=== PATIENT | female | born 1980 | race Caucasian/White ===

== ENCOUNTER 2020-06-11 22:28 | Emergency (ER) | payer OTHER, SELFPAY ==
--- NOTE | ~2020-06-11 | XR_ITS ---
EXAMINATION: XR CHEST CLINICAL INFORMATION: Pneumonia, low suspicion COMPARISON: None TECHNIQUE: Frontal view of the chest was obtained. FINDINGS: The heart and pulmonary vessels appear normal. In the retrocardiac region, there is some mild increased density which may represent infiltrate or atelectasis. No pleural effusions are seen. No lung masses are seen. XR/XR chest 1V IMPRESSION: Question of infiltrate versus atelectasis retrocardiac region.
[2020-06-11 22:56] VITALS: PULSE 105; RESP 18; TEMP 37.1; O2SAT 95
--- NOTE | 2020-06-12 00:18 | ED.URI ---
HPI - URI/Sore Throat General Chief Complaint: Upper Respiratory Symptoms Stated Complaint: asthma,chest pressure Time Seen by Provider: 06/12/20 00:00 Source: patient Mode of arrival: ambulatory Limitations: no limitations History of Present Illness HPI Narrative: Patient comes emergency room complaining of upper respiratory issues. Patient states she has coughing, having sinus pressure, runny nose. Has tried Flonase with no relief. Also, complaining of a mild asthma exacerbation earlier today which self-resolved. Patient denies shortness of breath or chest pain. Patient states she had an asthma exacerbation 2 years ago, her albuterol already . Patient states she has not been tested for [place] elicited complaint: cough Related Data Previous Rx's Medication Instructions Recorded albuterol sulfate 2 puff INHALATION Q4-6H PRN #8.5 g 06/12/20 azithromycin 250 mg PO DAILY 5 Days #5 tab 06/12/20 prednisone 50 mg PO DAILY #4 tab 06/12/20 Allergies Allergy/AdvReac Type Severity Reaction Status Date / Time No Known Allergies Allergy Verified 06/11/20 22:59 Review of Systems Review of Systems: Constitutional : No Weight loss, No Fever, No Chills, No Night Sweats, No Fatigue, No Malaise ENT/Mouth : No Hearing loss, No Ear Pain, No Nasal Congestion, No Sinus Pain, No Hoarseness, No sore throat, No Rhinorrhea, No Swallowing Difficulty Eyes: No Eye Pain, No Swelling, No Redness, No Foreign Body, No Discharge, No Vision Changes Cardiovascular : No Chest Pain, No SOB, No Dyspnea on Exertion, No Orthopnea, No Edema, No Palpitations Respiratory : Complaining of dry cough No Sputum, complaining of wheezing, No Smoke Exposure, No Dyspnea Gastrointestinal : No Nausea, No Vomiting, No Diarrhea, No Constipation, No abdominal Pain, No Hematochezia, No Melena Genitourinary : no irregular bleeding, No Dysuria, No Urinary Frequency, No Hematuria, No Urinary Incontinence, No Urgency, No Flank Pain, No Urinary Flow Changes, No Hesitancy Musculoskeletal : No joint pain, No Myalgias, No Joint Swelling Skin : No Skin Lesions, No rash Neuro : No Weakness, No Numbness, No Paresthesias, No Loss of Consciousness, No Dizziness, No Headache Psych : No Anxiety/Panic, No Depression, No SI/HI/AH/VH, No Social Issues, Heme/Lymph: No Bruising, No Bleeding,No Lymphadenopathy Endocrine : No Polyuria, No Polydipsia, No Temperature Intolerance [facility] Past Medical History Medical History (Updated 06/12/20 @ 01:34 by Kiarra Medina MD) Asthma Social History Social History Advance Directives: No Physical Exam Vital Signs: Vital Signs: Last Vital Signs Temp 98.7 F 06/11/20 22:56 Pulse 105 H 06/11/20 22:56 Resp 18 06/11/20 22:56 Pulse Ox 95 06/11/20 22:56 Body Mass Index 30.0 Appearance: Alert. Oriented X3. No acute distress. Eyes: Pupils equal, round and reactive to light. ENT: Pharynx normal. Neck: Normal inspection. Neck supple. No lymph nodes noted. No crepitus CVS: Normal heart rate and rhythm. Pulses normal. Normal S1 and S2 Respiratory: No respiratory distress. Breath sounds normal. No Wheezing. No rales , actively coughing Abdomen: Soft and nontender. No rigidity. No distention. good BS x4 Skin: Skin warm and dry. Normal skin color. Normal skin turgor. Extremities: No lower extremity edema. No lower extremity edema. No Lacerations. No Rash Neuro: Oriented X 3. No motor deficit. No sensory deficit. Moving all extermities. No slurred speech. Course Course Course Narrative: I discussed with the patient that she may have early pneumonia. Patient has no fever chills. Patient will be started on antibiotics. Patient also requested a refill albuterol. I also discussed with the patient that we will send prednisone to her pharmacy. Patient tested positive for COVID-19. MDM - URI/Sore Throat Lab Data Labs: Lab Results 06/12/20 Range/Units 00:27 Coronavirus (PCR) POSITIVE A (Negative) Influenza Type A (PCR) NEGATIVE (Negative) Influenza Type B (PCR) NEGATIVE (Negative) RSV RNA Qual (PCR) NEGATIVE (Negative) Imaging Data Chest x-ray: Radiologist's impression: The heart and pulmonary vessels appear normal. In the retrocardiac region, there is some mild increased density which may represent infiltrate or atelectasis. No pleural effusions are seen. No lung masses are seen. XR/XR chest 1V IMPRESSION: Question of infiltrate versus atelectasis retrocardiac region Discharge Plan Discharge Clinical Impression: COVID-19 Pneumonia Qualifiers: Pneumonia type: due to unspecified organism Laterality: unspecified laterality Lung location: unspecified part of lung Qualified Code(s): J18.9 - Pneumonia, unspecified organism Patient Disposition: Home, Self-Care Instructions: Pneumonia (ED) Additional Instructions: You tested positive for COVID-19. Please stay at home for 10 days. Please follow-up with your primary care physician tomorrow. If you have any worsening or new symptoms, please return to the emergency room or call 911 Prescriptions: New azithromycin 250 mg tablet 250 mg PO DAILY 5 Days Qty: 5 RF: 0 albuterol sulfate 90 mcg/actuation HFA aerosol inhaler 2 puff inhalation Q4-6H PRN (Reason: shortness of breath or wheezing) Qty: 8.5 RF: 0 prednisone 50 mg tablet 50 mg PO DAILY Qty: 4 RF: 0 Stand Alone Forms: Work/School Release Interventions: ED Discharge Assessment Last Done: 06/12/20 01:21
[2020-06-12 01:21] LABS: Influenza A PCR NEGATIVE (Negative); Influenza B PCR NEGATIVE (Negative); Resp Syncy Virus RNA Qual PCR NEGATIVE (Negative)
[2020-06-12] MEDS: predniSONE 10 MG TABLET 50 MG PO (01:28)
[2020-06-12] MEDS: Azithromycin 500 MG TABLET PO (01:28)
[2020-06-12 01:29] LABS: SARS COV2 PCR INHOUSE POSITIVE (Negative)
--- NOTE | 2020-06-12 01:58 | PC.NURSE ---
D/C EDUCATION REITERATED. UPDATED PAPERWORK GIVEN. NO QUESTIONS REGARDING OUTPATIENT MANAGEMENT AND COVID PROTOCOL
== END 2020-06-12 01:59 | disposition home or self-care (01) ==
PROVIDERS: Emergency Provider Emergency Medicine
DX: U07.1 COVID-19 (principal); J45.909 Unspecified asthma, uncomplicated; Z79.899 Other long term (current) drug therapy
CPT/HCPCS: 0241U; 36415; 71045; 99283

== ENCOUNTER 2023-03-09 12:19 | Emergency (ER) | payer OTHER, SELFPAY ==
--- NOTE | ~2023-03-09 | XR_ITS ---
EXAMINATION: XR CHEST 2 VIEW CLINICAL INFORMATION: Hypertension COMPARISON: 06/12/2020 TECHNIQUE: PA and lateral views of the chest obtained. FINDINGS: The lungs are clear. There are no pleural effusions. The cardiomediastinal silhouette is normal. XR/XR chest 2V IMPRESSION: No acute cardiopulmonary disease.
[2023-03-09 12:42] VITALS: BP 181/115; PULSE 103; RESP 17; TEMP 36.4; O2SAT 94
--- NOTE | 2023-03-09 12:42 | ED.GENADULT ---
HPI - General Adult General Chief complaint: General Medical Stated complaint: high bp Time Seen by Provider: 03/09/23 17:00 Source: patient, RN notes reviewed and old records reviewed Mode of arrival: ambulatory Limitations: no limitations History of Present Illness HPI narrative: 42-year-old female with past medical history significant for asthma, headaches presents for evaluation of a headache and high blood pressure. Patient reports that she woke up this morning with a global headache. She reports a history of migraine headaches but has not had a migraine in over a year Patient did not take any medications to alleviate her symptoms. She reports at work she took her blood pressure because she was having a headache She states that her blood pressure was ?high. ? Patient reports that she takes losartan and hydrochlorothiazide for her blood pressure. She reports her medications this morning She stop taking amlodipine a few months ago due to leg swelling Patient reports her headache is 7/10 and global No fevers, chills, visual changes, eye pain No other complaints or concerns at this time Related Data Previous Rx's Medication Instructions Recorded albuterol sulfate 90 mcg/actuation 2 puff inhalation Q4-6H PRN 06/12/20 aerosol inhaler shortness of breath or wheezing #8.5 grams azithromycin 250 mg tablet 250 mg PO DAILY 5 days #5 tabs 06/12/20 prednisone 50 mg tablet 50 mg PO DAILY #4 tabs 06/12/20 [id number]-[id number] 1 cap PO Q4-6H PRN headache #20 03/09/23 50 mg-300 mg-40 mg capsule caps (Fioricet) Allergies Allergy/AdvReac Type Severity Reaction Status Date / Time No Known Allergies Allergy Verified 06/11/20 22:59 Review of Systems Constitutional: Constitutional: Denies chills, Denies fever(s) and Reports headache(s) Eyes: Eyes: Denies blind spots, Denies blurry vision and Denies exophthalmos ENT: Reports headache(s) and Denies neck pain Cardiovascular: Cardiovascular: Denies chest pain and Denies dyspnea Respiratory: Respiratory: Denies cough and Denies dyspnea Gastrointestinal: Gastrointestinal: Denies abdominal pain, Denies nausea and Denies vomiting Musculoskeletal: Musculoskeletal: Denies back pain, Denies neck pain and Denies numbness Neurologic: Reports headache(s) and Denies numbness [facility] Past Medical History Medical History (Updated 03/09/23 @ 18:33 by Thor Harrison) Asthma Social History Social History Alcohol intake: never Smoked in Last 30 Days: No Use of substances other than those prescribed or required for medical reasons: No Advance Directives: No Advance Directives Information Provided: Yes Patient : No Physical Exam ED Vital Signs: Vital Signs - 24 hr 03/09/23 12:42 03/09/23 16:46 03/09/23 17:05 Temperature 97.6 F 98.2 F Pulse Rate 103 H 89 Respiratory Rate 17 16 Blood Pressure 181/115 H 181/102 H 170/105 H Pulse Oximetry 94 98 Oxygen Delivery Method Room Air Room Air 03/09/23 18:10 Temperature Pulse Rate 85 Respiratory Rate 18 Blood Pressure 144/92 H Pulse Oximetry 96 Oxygen Delivery Method BMI result Body Mass Index 0.3 Const General: healthy appearing, comfortable, no acute distress, alert and awake Nutritional Appearance: well nourished Orientation/consciousness: patient oriented x3 HENMT Head: Yes normocephalic and Yes atraumatic Eyes Eyelids: Yes eyelids normal Conjunctivae: conjunctivae normal Pupils: Equal, round and reactive pupils present EOM: EOMs intact bilaterally Neck Neck: Yes full ROM Resp Effort & Inspection: normal respiratory effort, able to speak in complete sentences and not labored Neuro General: patient oriented x3 Cranial nerves: Yes CN's II-XII intact bilaterally, Yes Equal, round and reactive pupils present and Yes Bilaterally intact EOM present Cognition (Neuro): normal cognition Extrem Other: Moving all extremities well without any obvious deformities Course Course Course Narrative: RME performed by Kristie Gutiérrez PA-C. Patient is a 42 year old assigned female at presenting to the emergency department with high blood pressure. Labs ordered. Patient placed back in the waiting room pending room availability and results. Medications Administered Discontinued Medications Generic Name Dose Route Start Last Admin Trade Name Freq PRN Reason Stop Dose Admin Acetaminophen/Butalbital/Caffeine 1 tab 03/09/23 17:14 03/09/23 17:20 Butalb/Acetamin/Caff 50/325/40 Tablet PO 03/09/23 17:15 1 tab ONCE ONE Administration Ketorolac Tromethamine 30 mg 03/09/23 17:14 03/09/23 17:20 Ketorolac Tromethamine 30 Mg/Ml Vial IM 03/09/23 17:15 30 mg ONCE ONE Administration Medical Decision Making Medical Decision Making [facility] Narrative: 42-year-old female with history of asthma and headaches presents for pressure. Her blood pressure on arrival to the ED is 181/115. On recheck it is down to 170/105 without intervention. She reports that she is still having headache is steady exam. Her elevated blood pressure could be related to discomfort related to her headache. Given the patient has a history of chronic headaches and has no warning signs does not o'clock headache or neuro deficits, I do not see any indication for emergent imaging at this time. Patient's labs and workup without any significant findings to explain her symptoms. Will treat her headache and re-evaluate her blood pressure. Differential Diagnosis Differential Diagnoses: The differential diagnosis associated with the presentation includes Acute headache Hypertension Hypertensive urgency Hypertensive emergency Viral syndrome Lab Data [facility] Lab Attestation statement: I reviewed the patient's lab results. Mild leukocytosis to 11.5 K without a left shift. No anemia. Patient has full account of cyst above normal at 446 K. no significant chemistry abnormalities. Serology negative for viral swab. 03/09/23 13:02 03/09/23 13:02 Labs: Lab Results 03/09/23 Range/Units 13:02 WBC 11.5 H (4.8-10.8) X10*3/uL RBC 4.93 (4.20-5.50) X10*6/uL Hgb 15.0 (12.0-16.0) g/dl Hct 43.0 (37.0-47.0) % MCV 87.2 (80.0-98.0) fL MCH 30.4 (27.0-33.0) pg MCHC 34.9 (31.0-35.0) g/dl RDW 12.9 (11.0-16.0) % Plt Count 446 H (160-400) X10*3/uL MPV 8.6 L (9.4-12.3) fL Immature Gran % (Auto) 0.5 H (0.0-0.4) % Neut % (Auto) 63.5 (45-73) % Lymph % (Auto) 26.9 (20-40) % Titus % (Auto) 8.6 (2-11) % Eos % (Auto) 0.0 (0-4) % Baso % (Auto) 0.5 (0-2) % Lymph # (Auto) 3.1 (1.2-4.9) X10*3/uL Titus # (Auto) 1.0 (0.1-1.2) X10*3/uL Eos # (Auto) 0.0 (0.0-0.4) X10*3/uL Baso # (Auto) 0.1 (0.0-0.2) X10*3/uL Abs Immat Gran (auto) 0.06 H (0.00-0.03) X10*3/uL Absolute Neuts (auto) 7.3 (2.0-8.3) x10*3/uL Absolute Nucleated RBC 0.000 (0.0-0.012) X10*3/uL Nucleated RBC % (auto) 0.0 (0.0-0.2) /100WBC PT 11.6 (11.1-13.3) SEC INR 1.0 (0.9-1.1) APTT 36.9 H (26.0-36.4) SEC Sodium 137 (135-145) mmol/L Potassium 3.3 (3.3-5.1) mmol/L Chloride 100 (96-108) mmol/L Carbon Dioxide 29 (22-29) mmol/L Anion Gap 11 L (12-20) BUN 12 (9-16) mg/dL Creatinine 0.71 (0.5-1.4) mg/dL Estim Creat Clear Calc 140.6 Estimated GFR > 60 Random Glucose 119 H (60-115) mg/dL Calcium 10.1 (8.4-10.2) mg/dL Magnesium 1.9 (1.6-2.6) mg/dL Total Bilirubin 0.8 (0.0-1.0) mg/dL AST 15 (5-31) U/L ALT 14 (0-31) U/L Alkaline Phosphatase 67 (39-117) U/L Troponin I High Sens < 2.7 (<3.5-17.0) ng/L Total Protein 8.0 (6.5-8.0) g/dL Albumin 4.4 (3.5-5.0) g/dL Influenza Type A (PCR) NEGATIVE (Negative) Influenza Type B (PCR) NEGATIVE (Negative) RSV RNA Qual (PCR) NEGATIVE (Negative) SARS-CoV-2 RNA (RT-PCR) NEGATIVE (Negative) Tests considered The following testing was considered but not selected: Considered CT scan of the head all the patient has history of headaches and no neuro deficits. No warning signs for thunderclap headache. Imaging deferred at this time. Discharge Plan Discharge Clinical Impression: Acute headache Patient Disposition: Home, Self-Care Instructions: Acute Headache (ED) Additional Instructions: Your workup in the emergency department today was reassuring. Take your blood pressure medications as prescribed I think your blood pressure was slightly elevated today due to your headache Use Fioricet as needed for further headaches Return for new or worsening symptoms Call your doctor tomorrow morning to schedule follow-up Prescriptions: New rwyedoypde-xsrosxnxctwxi-mcqj [Fioricet] 50-300-40 mg capsule 1 cap PO Q4-6H PRN (Reason: headache) Qty: 20 0RF Rx Instructions: do not exceed 6 caps per day No Action azithromycin 250 mg tablet 250 mg PO DAILY 5 Days Qty: 5 0RF albuterol sulfate 90 mcg/actuation HFA aerosol inhaler 2 puff inhalation Q4-6H PRN (Reason: shortness of breath or wheezing) Qty: 8.5 0RF prednisone 50 mg tablet 50 mg PO DAILY Qty: 4 0RF Stand Alone Forms: Work/School Release
--- NOTE | 2023-03-09 12:45 | ECG_ITS ---
Test Reason : HTN Blood Pressure : / mmHG Vent. Rate : 098 BPM Atrial Rate : 098 BPM P-R Int : 134 ms QRS Dur : 090 ms QT Int : 346 ms P-R-T Axes : 033 -07 021 degrees QTc Int : 441 ms Normal sinus rhythm Moderate voltage criteria for LVH, may be normal variant ( R in aVL , [place] product ) Nonspecific T wave abnormality Inferior leads Abnormal ECG No previous ECGs available Referred By: Kristie Gutiérrez Electronically Signed By:MELVA OREILLY MD
[2023-03-09 13:07] LABS: MANUAL DIFF FLAG NO
[2023-03-09 13:09] LABS: Basophils Absolute Auto 0.1 X10*3/uL (0.0-0.2); Basophils Percent Auto 0.5 % (0-2); Imm Gran Abs Auto 0.06 X10*3/uL (0.00-0.03); Imm Gran Pct Auto 0.5 % (0.0-0.4); Lymphocytes Absolute Auto 3.1 X10*3/uL (1.2-4.9); Lymphocytes Percent Auto 26.9 % (20-40); Mean Corpuscular HGB Conc 34.9 g/dl (31.0-35.0); Mean Corpuscular Hemoglobin 30.4 pg (27.0-33.0); Mean Corpuscular Volume 87.2 fL (80.0-98.0); Mean Platelet Volume 8.6 fL (9.4-12.3); Monocytes Percent Auto 8.6 % (2-11); Neutrophils Absolute Auto 7.3 x10*3/uL (2.0-8.3); Neutrophils Percent Auto 63.5 % (45-73); Platelet Count 446 X10*3/uL (160-400); Red Blood Count 4.93 X10*6/uL (4.20-5.50); Red Cell Distribution Width 12.9 % (11.0-16.0); White Blood Count 11.5 X10*3/uL (4.8-10.8)
[2023-03-09 13:21] LABS: Prothrombin Time 11.6 SEC (11.1-13.3)
[2023-03-09 13:22] LABS: Alanine Aminotransferase 14 U/L (0-31); Albumin Level 4.4 g/dL (3.5-5.0); Alkaline Phosphatase 67 U/L (39-117); Anion Gap 11 (12-20); Aspartate Amino Transferase 15 U/L (5-31); Bilirubin Total 0.8 mg/dL (0.0-1.0); Blood Urea Nitrogen 12 mg/dL (9-16); Calcium 10.1 mg/dL (8.4-10.2); Carbon Dioxide 29 mmol/L (22-29); Chloride 100 mmol/L (96-108); Creatinine Clr Calc Pharmacy 140.6; Estimated Glomerular Filt Rate > 60; Glucose Random 119 mg/dL (60-115); Magnesium 1.9 mg/dL (1.6-2.6); Potassium 3.3 mmol/L (3.3-5.1); Sodium 137 mmol/L (135-145)
[2023-03-09 13:23] LABS: Partial Thromboplastin Time 36.9 SEC (26.0-36.4)
[2023-03-09 13:30] LABS: Troponin-I High Sensitivity < 2.7 ng/L (<3.5-17.0)
[2023-03-09 13:48] LABS: Influenza A PCR NEGATIVE (Negative); Influenza B PCR NEGATIVE (Negative); Resp Syncy Virus RNA Qual PCR NEGATIVE (Negative); SARS COV2 PCR INHOUSE NEGATIVE (Negative)
[2023-03-09 16:46] VITALS: BP 181/102
[2023-03-09 17:05] VITALS: BP 170/105; PULSE 89; RESP 16; TEMP 36.8; O2SAT 98
--- NOTE | 2023-03-09 17:15 | PC.NURSE ---
a&ox3, nsr on the wood heel flap inserter. vss and up to date aside from HTN. pt c/o 12/28 headache but denies any other sx. pt states HTN started this am w/o reason for cause. pt is compliant w/ meds. denies sob/wob at this time. resting in no apparent distress at this time. respirations even and unlabored. call zamudio placed within reach.
[2023-03-09] MEDS: Ketorolac Tromethamine 30 MG/ML VIAL IM (17:20)
[2023-03-09] MEDS: Butalb/Acetamin/Caff 50/325/40 TABLET 1 TAB PO (17:20)
--- NOTE | 2023-03-09 17:23 | PC.NURSE ---
medication administered per provider order. will reassess pain level shortly.
[2023-03-09 18:10] VITALS: BP 144/92; PULSE 85; RESP 18; O2SAT 96
--- NOTE | 2023-03-09 18:42 | PC.NURSE ---
pt verbalizing pain level decreased to a 2/10 post medication administration. pt provided w/ d/c paperwork.
== END 2023-03-09 18:44 | disposition home or self-care (01) ==
PROVIDERS: Physician Assistant Medical; Emergency Provider Student in an Organized Health Care Education/Training Program; PCP Internal Medicine
DX: R51.9 Headache, unspecified (principal); I10 Essential (primary) hypertension; Z20.822 Contact with and (suspected) exposure to COVID-19; Z20.828 Contact with and (suspected) exposure to other viral communicable diseases
CPT/HCPCS: 0241U; 71046; 80053; 83735; 84484; 85025; 85610; 85730; 93005; 96372; 99284; 99285; J1885